=== PATIENT | female | born 1995 | race Caucasian/White ===

== ENCOUNTER 2022-04-01 03:46 | Inpatient (IN) ==
[2022-04-01] MEDS ORDERED: PENICILLIN G POTASSIUM 6 MU in DEXTROSE 5% 250 ML IV STA (04:32)
[2022-04-01] MEDS ORDERED: OXYTOCIN 30 UNITS/500 ML BAG IV PRN ×2 (04:32→12:16)
[2022-04-01] MEDS: LACTATED RINGER'S 1,000 ML IV PRN ×2 (05:05→07:32)
[2022-04-01 05:15] LABS: Hematocrit (blood only) 29.7 % (34.1-44.9); Hemoglobin 9.6 g/dl (12.0-16.0); Mean Corpuscular Hgb Conc 32.3 g/dL (32.0-36.0); Mean Corpuscular Volume 77.3 fL (80.0-100.0); Mean Platelet Volume 10.6 fL (9.4-12.3); Platelet Count 146 K/uL (130-400); RDW Coefficient of Variation 13.3 % (11.5-14.5); Red Blood Count 3.84 M/uL (3.93-5.22); White Blood Count 10.92 K/ul (4.8-10.8)
[2022-04-01] MEDS ORDERED: SODIUM CHLORIDE 0.9% 250 ML IV PRN (07:12)
--- NOTE | 2022-04-01 07:21 | History & Physical Report ---
Date of Service April 01, 2022 Assessment & Plan (1) Supervision of normal intrauterine in multigravida: Plan: 4cm, post dates and gilbert intensely. Suggested epidural, then AROM. PCN Admission and Anticipated Discharge Date Admission Date: April 01, 2022 History of Present Illness Primary Care Provider: David Pearl MD Visit NIXON Calculator Estimated Delivery Date Method Current WG Current Estimate 03/28/22 LMP (Certain) 40w 3d LMP: 06/21/21 : 2 Full term: 1 Premature: 0 Total Number of Induced Abortions: 0 Total Number of Spontaneous Abortions: 0 Ectopics: 0 Multiple births: 0 Number of Living Children: 1 and Delivery Plans rhogam candidate GBS carrier- treat in labor Dilated stomach on US - MFM consult 01/17 -MFM US 01/17-stomach enlargement (>95%) without gastrointestinal dilation -Growth/TONY/ stomach measurment Q monthly - imaging after delivery Allergies Allergy/AdvReac Type Severity Reaction Status Date / Time No Known Drug Allergies Allergy Unknown Verified 03/31/22 09:26 Home Medications Medication Instructions Recorded Confirmed Type prenat.vits,maricarmen,tei-kvxr-dhwvk 1 tab PO DAILY 08/26/21 04/01/22 History opfqoacuqq-odcxvptmyhrre-swiqshqf 1 cap PO Q8H PRN #3 cap 09/01/21 04/01/22 Rx 50 mg-300 mg-40 mg capsule (Fioricet) riboflavin (vitamin B2) 100 mg 400 mg PO DAILY 30 Days #120 tab 09/07/21 04/01/22 Rx tablet buspirone 5 mg tablet 5 mg PO BID #60 tab 12/14/21 04/01/22 Rx Patient History Medical History (Updated 04/01/22 @ 04:39 by Samra Olvera, DARIUSZ) Anxiety Depression IBS (irritable bowel syndrome) Surgical History History of cholecystectomy Family History Grandmother (Maternal) Hypertension Alzheimer disease Social History Smoking Status: Never smoker Hx Alcohol Use: No Hx Substance Use: No Preferred Language: Nigerien Communication Ability: Effective [employer] Worker Required: No Beliefs That Will Affect Care: None marital status: marital status details: Dejah (32) [phone] Current Living Situation: Spouse Current Living Situation Comment: lives with spouse and child, 1 cat, 1 bird, spouse changes litter. Other Information That Helps Us Care for You: No Feels Safe at Home: Yes Safety Concerns: Feels Safe At This Time Assistive Devices: None Results & Data ([facility]) Vital Signs (Past 12 Hours) Vital Signs Temp Pulse Resp BP 04/01/22 07:01 91 H 114/69 04/01/22 04:07 98.1 F 18 04/01/22 04:04 95 H 130/84 Coding Level of Care Code None Diagnoses Supervision of normal intrauterine in multigravida Z34.80
[2022-04-01] MEDS ORDERED: ePHEDrine sulfate 50 MG/ML AMP ONE (07:24)
[2022-04-01] MEDS ORDERED: LIDOCAINE 2%/EPINEPHRINE 1:200,000 20 ML SDV ONE (07:25)
[2022-04-01] MEDS ORDERED: fentaNYL citrate 100 MCG/2 ML VIAL ONE (07:25)
[2022-04-01] MEDS ORDERED: BUPIVACAINE 0.25% 30 ML VIAL ONE (07:25)
[2022-04-01] MEDS ORDERED: SODIUM CHLORIDE 0.9% INJ 10 ML VIAL ONE (07:25)
[2022-04-01] MEDS ORDERED: fentaNYL 2MCG/ML ROPIVACAINE 1.25MG/ML 100 ML BAG EPI ONE (07:26)
[2022-04-01] MEDS ORDERED: diphenhydrAMINE 50 MG/ML VIAL IV PRN (08:15)
[2022-04-01] MEDS ORDERED: NALBUPHINE HCL INJ 10 MG/ML AMP IV PRN (08:15)
[2022-04-01] MEDS ORDERED: NALOXONE HCL 0.4 MG/1 ML VIAL/CARP IV PRN (08:15)
[2022-04-01] MEDS ORDERED: PROMETHAZINE HCL 6.25 MG in SODIUM CHLORIDE 0.9% 50 ML IV PRN (08:15)
[2022-04-01] MEDS ORDERED: ePHEDrine sulfate 50 MG/ML AMP IV PRN (08:15)
[2022-04-01] MEDS ORDERED: NALOXONE HCL 1 MG in SODIUM CHLORIDE 0.9% 1000ML 1,000 ML IV PRN (08:15)
[2022-04-01] MEDS ORDERED: fentaNYL 2MCG/ML ROPIVACAINE 1.25MG/ML 100 ML BAG EPI PRN (08:15)
[2022-04-01] MEDS ORDERED: ONDANSETRON INJ 2 MG/ML 2 ML VIAL IV PRN (08:15)
--- NOTE | 2022-04-01 08:15 | Anesthesiology Consultation ---
Date of Service April 01, 2022 Assessment & Plan Chart Review Chart Review: Patient NOT seen in Pre Admission Testing and Acceptable Risk for Labor Epidural Consults Requested none ASA ASA2 Proposed Anesthesia Anesthesia Type: Labor Epidural Risk / Benefits Reviewed With: PT / POA / Parent / Guardian, Accepts Plan and Informed Consent Obtained History Height/Weight Height: 5 ft 4 in Weight: 82.554 kg Allergies Allergy/AdvReac Type Severity Reaction Status Date / Time No Known Drug Allergies Allergy Unknown Verified 03/31/22 09:26 Medications Home Medications Medication Instructions Recorded Confirmed Last Taken prenat.vits,maricarmen,tvm-lhqa-putnb 1 tab PO DAILY 08/26/21 04/01/22 03/31/22 20:00 offloytnnz-atqlywfuytmnz-gycyntnz 1 cap PO Q8H PRN #3 cap 09/01/21 04/01/22 03/30/22 08:00 50 mg-300 mg-40 mg capsule (Fioricet) riboflavin (vitamin B2) 100 mg 400 mg PO DAILY 30 Days #120 tab 09/07/21 04/01/22 03/30/22 08:00 tablet buspirone 5 mg tablet 5 mg PO BID #60 tab 12/14/21 04/01/22 03/31/22 22:00 Active Medications Generic Name Dose Route Start Last Admin Trade Name Freq PRN Reason Stop Dose Admin Lactated Ringer's 1,000 mls @ 125 mls/hr 04/01/22 04:32 04/01/22 07:32 Lr IV 04/03/22 04:31 999 mls/hr .Q8H PRN Administration L&D Protocol Protocol Past Medical History Medical History (Updated 04/01/22 @ 04:39 by Samra Olvera RN) Anxiety Depression IBS (irritable bowel syndrome) Exercise / Class Metabolic Activity II 4-5 Yardwork/Stairs/Walk up hill Past Family History Family History Grandmother (Maternal) Hypertension Alzheimer disease Past Surgical History Surgical History History of cholecystectomy Past Anesthesia History No Hx of Anesthesia Complications and No Family Hx of Anesthesia Complications History of PONV No Hx of PONV and No Hx of Motion Sickness Social History Smoking Status: Never smoker Hx Alcohol Use: No Hx Substance Use: No Physical Exam Vital Signs Last Vital Signs Temp 36.7 C 04/01/22 04:07 Pulse 93 H 04/01/22 08:13 Resp 18 04/01/22 04:07 BP 108/57 L 04/01/22 08:13 Pulse Ox 99 04/01/22 08:11 ENMT Mouth: no dentition abnormality Thyromental Distance: > or= 3.5 Finger Breadths Mallampati Class: II Neck normal visual inspection Respiratory normal respiratory effort Auscultation: lungs clear to auscultation bilaterally Cardiovascular Rate/Rhythm: regular rate and regular rhythm Psychiatric Orientation: alert Testing Laboratory Results 04/01/22 04:54
[2022-04-01] MEDS: PENICILLIN G POTASSIUM 3 MU in DEXTROSE 5% 100 ML IV PRN ×2 (08:45→13:34)
[2022-04-01] MEDS ORDERED: ACETAMINOPHEN 325 MG TAB PO PRN (12:16)
--- NOTE | 2022-04-01 12:23 | Labor Progress Brief Note ---
Date of Service April 01, 2022 Subjective No contraction pain. Mild SCHWARTZ. No RUQ pain, no vision change, no edema. SCHWARTZ present prior to placement of epidural. Patient notes has been sleeping poorly, almost no actual sleep since 6am yesterday morning, suspects that plus caffeine withdrawal are to blame. Sipping cola now. Would like to try tylenol. Assessment & Plan (1) Normal labor: Plan: Add pitocin to bring head down from high station; AROM likely will help also, as ROM had been suspected earlier but may only have been a small leak. Pit likely will help with dysfunctional ctx pattern. GBS pos, now adequately treated. Headache unlikely to be r/t epidural, BP and lack of other symptoms point away from preeclampsia, and patient has known h/o migraine. Had blanket over her head when I entered room, which is being kept dark. Will try tylenol in addition to the caffeinated beverage she is sipping. Admission and Anticipated Discharge Date Admission Date: April 01, 2022 Physical Exam Genitourinary: /-2 head ballottable; AROM of remaining bag of fluid with finger, thick mec noted / new. FHT were 140 mod corinna no accels + earlies, then after rom, 150 mod corinna +acc +early Octa coupling with 5min space between pairs of Q1.5m contractions Results & Data ([facility]) Vital Signs (Past 12 Hours) Vital Signs Temp Pulse Resp BP Pulse Ox 04/01/22 12:11 114 H 100 04/01/22 12:08 124 H 89 L 04/01/22 12:06 105 H 98 04/01/22 12:01 106 H 96 04/01/22 11:56 96 H 97 04/01/22 11:51 102 H 98 04/01/22 11:46 98 H 97 04/01/22 11:41 117 H 99 04/01/22 11:36 107 H 96 04/01/22 11:31 112 H 97 04/01/22 11:26 111 H 99 04/01/22 11:24 98.6 F 16 04/01/22 11:21 97 H 96 04/01/22 11:20 16 04/01/22 11:16 95 H 97 04/01/22 11:11 111 H 96 04/01/22 11:06 100 H 95 04/01/22 11:01 97 H 97 04/01/22 10:56 102 H 96 04/01/22 10:51 104 H 98 04/01/22 10:50 16 04/01/22 10:46 92 H 96 04/01/22 10:41 89 97 04/01/22 10:36 92 H 98 04/01/22 10:31 93 H 97 04/01/22 10:26 90 98 04/01/22 10:21 104 H 97 04/01/22 10:16 92 H 96 04/01/22 10:11 90 98 04/01/22 10:09 90 99/54 L 04/01/22 10:06 91 H 97 04/01/22 10:01 91 H 100 04/01/22 09:56 91 H 100 04/01/22 09:55 90 99/52 L 04/01/22 09:51 95 H 100 04/01/22 09:46 89 99 04/01/22 09:41 96 H 100 04/01/22 09:39 98 H 96/54 L 04/01/22 09:36 112 H 100 04/01/22 09:31 98 H 100 04/01/22 09:26 105 H 100 04/01/22 09:25 98.1 F 18 04/01/22 09:23 105 H 98/56 L 04/01/22 09:22 100 H 94 04/01/22 09:21 103 H 97 04/01/22 09:20 16 04/01/22 09:16 101 H 95 04/01/22 09:11 118 H 98 04/01/22 09:08 109 H 113/64 04/01/22 09:06 104 H 100 04/01/22 09:04 121 H 91 04/01/22 09:01 95 H 98 04/01/22 08:56 103 H 96 04/01/22 08:53 100 H 119/78 04/01/22 08:51 108 H 100 04/01/22 08:50 18 04/01/22 08:46 98 H 100 04/01/22 08:41 101 H 100 04/01/22 08:38 97 H 114/78 04/01/22 08:37 100 H 89 L 04/01/22 08:36 101 H 100 04/01/22 08:31 110 H 99 04/01/22 08:26 111 H 100 04/01/22 08:23 106 H 118/66 04/01/22 08:21 103 H 99 04/01/22 08:20 18 04/01/22 08:19 99 H 112/79 04/01/22 08:16 105 H 114/66 100 04/01/22 08:15 101 H 90 04/01/22 08:13 93 H 108/57 L 04/01/22 08:11 99 H 99 04/01/22 08:10 96 H 109/59 L 04/01/22 08:07 100 H 116/61 04/01/22 08:06 93 H 99 04/01/22 08:05 104 H 90 04/01/22 08:04 97 H 117/70 04/01/22 08:03 101 H 120/69 04/01/22 08:01 104 H 121/66 97 04/01/22 07:56 97 H 97 04/01/22 07:54 96 H 120/70 04/01/22 07:17 18 04/01/22 07:01 91 H 114/69 04/01/22 04:07 98.1 F 18 04/01/22 04:04 95 H 130/84 Coding Level of Care Code None Diagnoses Normal labor O80; Z37.9
--- NOTE | 2022-04-01 14:50 | Delivery Summary ---
Vaginal Delivery Summary Date of Service April 01, 2022 Vaginal Delivery Summary DIAGNOSES: 1. Rico intrauterine at 40w4d gestation. 2. Spontaneous onset of labor. 3. Group B Streptococcus Pos. 4. Suspected chorioamnionitis PROCEDURE: Spontaneous vaginal delivery and repair of clitoral/urethral laceration. SURGEON: Olga Paulino MD. CIGARETTE CATCHER: None. ESTIMATED BLOOD LOSS: 400 mL. COMPLICATIONS: None. PLACENTA: Spontaneous and intact with a 3-vessel cord. DISPOSITION: Stable to labor and delivery. DESCRIPTION: The patient pushed well and brought the head to in OA position with asynclitism apparent during descent. The infant's head was allowed to deliver with contraction force and no further active pushing, with the perineum protected during this time. There was no nuchal cord. The left shoulder was anterior. The shoulders and body delivered without any difficulty, and the was placed on the maternal abdomen. It was vigorous and moving all extremities, and making respiratory efforts. The cord was doubly clamped by the MD and then cut by the FOB. The placenta delivered spontaneously and was noted to be intact and with a 3VC. The cervix, vagina and perineum were examined and were found to have a laceration which disrupted the R labium minus, just superior to the location of a prior obstetric laceration which had left a "notch" in the labia, and continued inferiorly until it ended at the urethral meatus. An active arteriole was bleeding in the midportion of this laceration and did not become hemostatic despite 5min direct application of pressure. The patient was hoping to avoid having the area sutured as she had a lot of pain with this area being sutured after her prior delivery, but unfortunately sutures were recommended as hemostasis was not achievable otherwise, and due to disruption into the urethral meatus. Betadine prep was done, red rubber catheter was placed to victoria the urethra and ensure patency, and 3-0 vicryl was used in a running locked manner to close the laceration from the urethral verge to the labial disruption, achieving hemostasis along the way. The red rubber catheter was then removed, ensuring no suture had been placed through it and the urethra remained patent. To protect against urinary obstruction as swelling is expected in the coming 24 hours, a clean zepeda catheter was then inserted and will remain indwelling for 24 hours. Additionally, due to maternal temperature of 37.9 and the indwelling catheter, Unasyn will be given for 24hr . The fundus was firm and lochia minimal immediately after delivery. [facility] Vaginal Delivery Charge Vaginal Delivery Codes: 42052 global code for the antepartum, delivery, and post-
[2022-04-01] MEDS ORDERED: BENZOCAINE 20% AER SPR 82.5 GM CAN EXT PRN (14:51)
[2022-04-01] MEDS ORDERED: AMPICILLIN/SULBACTAM SOD 3,000 MG in 0.9 % SODIUM CHLORIDE 100 ML IV STA (14:51)
[2022-04-01] MEDS ORDERED: HYDROCORTISONE ACETATE 25 MG SUPP PR PRN (14:51)
[2022-04-01] MEDS ORDERED: DIPHTHERIA/TETANUS/PERTUSSIS 0.5 ML SYR/VIAL IM ONE (14:51)
[2022-04-01] MEDS ORDERED: oxyCODONE/ACETAMINOPHEN 5mg/325mg TAB PO PRN (14:51)
[2022-04-01] MEDS: IBUPROFEN 600 MG TAB PO PRN ×2 (15:38→21:23)
--- NOTE | 2022-04-01 16:23 | Anesthesia Procedure Note ---
Date of Service April 01, 2022 Anesthesia Post Epidural Note Vital Signs Vital Signs: Temp Pulse Resp BP Pulse Ox 37.9 C H 111 H 18 115/72 94 04/01/22 13:58 04/01/22 16:19 04/01/22 14:55 04/01/22 16:19 04/01/22 14:29 Pain Intensity Abdomen: Pain Intensity: 7 Notes Mental Status: alert / awake / arousable Nausea / Vomiting: adequately controlled Pain: adequately controlled Airway Patency, RR, SpO2: stable & adequate BP & HR: stable & adequate Hydration State: stable & adequate Neuraxial Anesthesia: was administered and sensory block is resolving Anesthetic Complications: no major complications apparent and Pt Satisfied with anesthetic care Epidural: Removed without complications and With tip intact
[2022-04-01] MEDS: AMPICILLIN/SULBACTAM SOD 1,500 MG in 0.9 % SODIUM CHLORIDE 100 ML IV SCH (21:13)
[2022-04-01] MEDS: DOCUSATE SODIUM 100 MG CAP PO SCH ×2 (21:23→21:26)
[2022-04-02] MEDS: AMPICILLIN/SULBACTAM SOD 1,500 MG in 0.9 % SODIUM CHLORIDE 100 ML IV SCH ×3 (03:12→09:42)
[2022-04-02] MEDS: IBUPROFEN 600 MG TAB PO PRN ×4 (05:20→19:50)
[2022-04-02 06:49] LABS: Hematocrit (blood only) 29.5 % (34.1-44.9); Hemoglobin 9.2 g/dl (12.0-16.0); Mean Corpuscular Hemoglobin 24.9 pg (25.0-34.0); Mean Corpuscular Hgb Conc 31.2 g/dL (32.0-36.0); Mean Corpuscular Volume 79.9 fL (80.0-100.0); Mean Platelet Volume 10.9 fL (9.4-12.3); Platelet Count 149 K/uL (130-400); RDW Coefficient of Variation 13.3 % (11.5-14.5); RDW Standard Deviation 37.8 fL (36.4-46.3); Red Blood Count 3.69 M/uL (3.93-5.22); White Blood Count 16.38 K/ul (4.8-10.8)
--- NOTE | 2022-04-02 07:13 | Obstetrical Progress Note ---
Date of Service April 02, 2022 Assessment & Plan (1) Urethral laceration: Zepeda placed to avoid urinary retention due to localized edema, and to minimize anticipated pain with urination in the immediate post- hours. Patient volunteers this morning that she is concerned about the possibility of her zepeda being removed too soon, and having to be replaced, which she fears (quite reasonably!) would be very painful. She asks about going home with the zepeda in place. I think it unlikely she will have trouble urinating after 24 hours have passed, and would expect that swelling be greatly reduced at that point such that a trial of void has an excellent chance of succeeding. Indwelling catheters are not without risk. I don't think we should keep her zepeda for days on end - but agree with leaving it for a full 24 hours. She is ordered for Unasyn during that time as well. After 2pm today she is agreeable to undergo TOV, and assuming she urinates successfully, she also wants to be discharged home this afternoon. I will prepare everything for that possibility; she is aware the final order will be placed by the on-call MD today if she is felt to be appropriate for discharge at that time. (2) state: Recovering normally, hoping for D/C today. Subjective Ambulation: ambulating normally Voiding: zepeda catheter in place Passing Gas:: Yes Diet Tolerance:: regular diet Lochia:: Small Feeding Type:: breast feeding Significant discomfort at the clitoral/urethral laceration site and with uterine cramping, not well controlled. Patient notes she has only been offered motrin, and I confirmed that she has percocet available. Made nursing staff aware this morning that patient likely needs the narcotic medication for which she has orders considering her laceration, and she will be offered a dose this morning. Physical Exam Constitutional WD/WN, vitals as above Eyes PERRL, conjunctivae normal, anicteric sclerae Neck normal visual inspection Respiratory normal respiratory effort and able to speak in complete sentences; no respiratory distress and no labored breathing Cardiovascular Rate/Rhythm: regular rate and regular rhythm Extremities: no edema Chest (Breasts) Chest: normal inspection of chest Gastrointestinal (Abdomen) Inspection/Auscultation: abdomen normal to inspection Soft, postgravid Psychiatric A+Ox3, euthymic affect Genitourinary OB Exam Abdomen: + fundal height Fundus: + firm and + relation to umbilicus (fundus just below umbilicus); not tender Results & Data ([facility]) Vital Signs (Past 12 Hours) Vital Signs Temp Pulse Pulse Resp BP Pulse Ox 04/02/22 03:20 98.1 F 91 H 18 118/80 98 04/01/22 23:50 97.9 F 84 16 100/65 98 04/01/22 19:25 97.9 F 89 16 108/69 99
[2022-04-02] MEDS ORDERED: PRENATAL VITAMIN 1 TAB PO SCH (08:00)
[2022-04-02] MEDS: DOCUSATE SODIUM 100 MG CAP PO SCH ×2 (08:59→21:06)
[2022-04-02] MEDS: ACETAMINOPHEN 325 MG TAB PO PRN ×2 (12:04→17:21)
[2022-04-02] MEDS ORDERED: AMPICILLIN/SULBACTAM SOD 1,500 MG in 0.9 % SODIUM CHLORIDE 100 ML IV SCH (20:45)
== END 2022-04-02 21:20 | disposition home or self-care (01) | DRG 768 ==
LOC: OPB 03:46 → 4S1 03:47 → 4E2 17:49